=== PATIENT | male | born 1975 | race Caucasian/White ===

== ENCOUNTER 2020-12-09 20:11 | Emergency (ER) | payer MEDICARE, MEDICAID, SELFPAY ==
--- NOTE | ~2020-12-09 | CT_ITS ---
EXAMINATION: CT HEAD WITHOUT CONTRAST CLINICAL INFORMATION: Head injury. Fell downstairs. Loss of consciousness. COMPARISON: None TECHNIQUE: Contiguous axial imaging was performed from the skull base to vertex without intravenous administration of contrast. Coronal and sagittal reformatted images are performed at CT scanner This CT examination was performed using dose optimization techniques as appropriate, variously including the following: *Automated exposure control *Adjustment of mA and/or kV according to patient size (this includes techniques or standardized protocols for targeted exams where dose is matched to indication/reason for exam; i.e. extremities or head) *Use of iterative reconstruction technique DLP: 743 mGy-cm FINDINGS: There is no evidence of acute intracranial hemorrhage or territorial infarction. No abnormal mass effect or midline shift is seen. Barrow to white matter differentiation is well preserved. No extra-axial fluid collections are identified. The ventricles are normal in size. There is no abnormal attenuation within the brain parenchyma. The osseous structures and soft tissues are normal. The mastoid air cells and visualized portions of the paranasal sinuses are well aerated. CT/CT head/brain wo con IMPRESSION: No acute intracranial pathology.
[2020-12-09 20:23] VITALS: BP 134/86; PULSE 89; RESP 18; TEMP 37.2; O2SAT 95; BMI 34.8
[2020-12-09 21:10] LABS: Amphetamine Screen Urine Not Detected (Not Detect); Barbiturates, Urine Not Detected (Not Detect); Benzodiazepines Screen Urine Not Detected (Not Detect); Cannabinoid Screen Urine Not Detected (Not Detect); Cocaine Screen Urine POSITIVE (Not Detect); Fentanyl, urine Not Detected (Not Detect); Opiate Screen Urine Not Detected (Not Detect); Phencyclidine Screen Urine Not Detected (Not Detect)
[2020-12-09 21:16] LABS: COVID-19 Test Negative (Negative); IDNOW Serial# 08D9AD1C
[2020-12-09 21:29] LABS: MANUAL DIFF FLAG NO
[2020-12-09 21:31] LABS: Basophils Percent Auto 0.5 % (0-2); Eosinophils Absolute Auto 0.2 X10*3/uL (0.0-0.4); Hematocrit 44.1 % (42-52); Hemoglobin 15.1 g/dl (14.0-18.0); Imm Gran Abs Auto 0.05 X10*3/uL (0.00-0.03); Imm Gran Pct Auto 0.7 % (0.0-0.4); Lymphocytes Absolute Auto 2.1 X10*3/uL (1.2-4.9); Lymphocytes Percent Auto 28.8 % (20-40); Mean Corpuscular HGB Conc 34.2 g/dl (31.0-36.0); Mean Corpuscular Hemoglobin 30.2 pg (27.0-33.0); Mean Corpuscular Volume 88.2 fL (80-98); Mean Platelet Volume 11.5 fL (9.4-12.4); Monocytes Absolute Auto 0.6 X10*3/uL (0.1-1.2); Monocytes Percent Auto 7.5 % (2-11); Neutrophils Absolute Auto 4.4 X10*3/uL (2.0-8.3); Neutrophils Percent Auto 59.5 % (45-73); Platelet Count 191 X10*3/uL (160-400); Red Cell Distribution Width 13.3 % (11.0-16.0); White Blood Count 7.4 X10*3/uL (4.8-10.8)
[2020-12-09 21:59] LABS: Anion Gap 17 (12-20); Blood Urea Nitrogen 8 mg/dL (9-16); Calcium 8.7 mg/dL (8.4-10.2); Carbon Dioxide 21 mmol/L (22-29); Chloride 109 mmol/L (96-108); Creatinine Clr Calc Pharmacy 167.6; Estimated Glomerular Filt Rate > 60; Glucose Random 81 mg/dL (60-115); Potassium 3.5 mmol/L (3.3-5.1); Sodium 143 mmol/L (135-145)
[2020-12-09 22:03] LABS: Ethanol 111 mg/dL
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
--- NOTE | 2020-12-09 22:56 | PC.NURSE ---
[facility] referral completed/confirmed by mata Vanegas at this time.
[2020-12-09 23:58] VITALS: BP 128/80; PULSE 85; RESP 17; TEMP 37.1; O2SAT 98
--- NOTE | 2020-12-10 00:26 | MHC.CARE ---
Pt was provided with resources and discussed relationship with his partner. Pt reports he has a psychiatrist at [facility]- Polly Jalloh. P will be d/c.
== END 2020-12-10 01:20 | disposition home or self-care (01) ==
PROVIDERS: Emergency Provider Emergency Medicine Emergency Medical Services
DX: S09.90XA Unspecified injury of head, initial encounter (principal); F60.0 Paranoid personality disorder; F14.10 Cocaine abuse, uncomplicated; W10.9XXA Fall (on) (from) unspecified stairs and steps, initial encounter; Y93.9 Activity, unspecified; Y92.9 Unspecified place or not applicable; Y99.9 Unspecified external cause status; Z79.899 Other long term (current) drug therapy; Z20.822 Contact with and (suspected) exposure to COVID-19; Z79.82 Long term (current) use of aspirin
CPT/HCPCS: 36415; 70450; 80048; 80307; 82077; 85025; 87635; 99283; 99284

== ENCOUNTER 2022-03-22 12:15 | Outpatient (REF) | payer OTHER, MEDICAID, SELFPAY ==
[2022-03-22 13:05] LABS: COVID-19 Test Negative (Negative); IDNOW Serial# 16C4AD1C
== END 2022-03-22 12:16 | disposition home or self-care (01) ==
LOC: HO.LAB 12:15
PROVIDERS: Visit Provider Internal Medicine
DX: Z20.822 Contact with and (suspected) exposure to COVID-19 (principal)
CPT/HCPCS: 87635; C9803

== ENCOUNTER 2024-06-08 00:58 | Emergency (ER) | payer MEDICAID, SELFPAY ==
--- NOTE | 2024-06-08 | ECG_ITS ---
Test Reason : CHEST PAIN Blood Pressure : */* mmHG Vent. Rate : 86 BPM Atrial Rate : 86 BPM P-R Int : 150 ms QRS Dur : 90 ms QT Int : 380 ms P-R-T Axes : 35 -20 37 degrees QTcB Int : 454 ms Normal sinus rhythm with sinus arrhythmia Possible Anterior infarct , age undetermined Abnormal ECG No previous ECGs available Referred By: Generic ED Physician Electronically Signed By: Juanjose Lowry
[2024-06-08 01:04] VITALS: BP 146/100; BP 148/88; PULSE 80; PULSE 86; RESP 18; TEMP 36.6; O2SAT 93; O2SAT 98; BMI 28.7
--- OUTSIDE RECORDS SUMMARY | 2024-06-08 01:40 | XMS_ITS ---
Author Organization [facility] Address [address] [id number] Care Team Providers Care Construction Engineer Name Role Phone GUCCI GRADY Unavailable [phone] REASON FOR VISIT Retesting Social History Sex Assigned At : Social History Observation Description Sex Assigned At Male Encounters Encounter Location Date Provider Diagnosis [facility] [address] [place] [id number] 06/2024 GUCCI GRADY Plan Of Treatment No Information Progress Notes * Cassius ALVARADO HDOB:03/1976 (48 yo M)Acc No.[id number]:04/11/2024 Progress Notes Patient:?Cassius ALVARADO Provider:CARMEN GRADY :1975???Age:48 Y???Sex:Male Tavon e:04/11/2024 Address:[address] [id number] Subjective: * Chief Complaints: * ???1. Retesting. * Medical History:? Objective: * Vitals:? Assessment: Plan: * Treatment: * Billing Information: * Visit Code:? * Procedure Codes:? * Electronic signature of WOO GRADY CNM on 06/08/2024 at 01:40 AM EST Sign off status: Pending * Provider:CARMEN GRADY Date:?04/11/2024 Generated for Leanne strickland/Nitesh/eTransmitting on:?06/08/2024 01:40 AM EST
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
[2024-06-08] MEDS: LORazepam 1 MG TABLET PO (02:19)
[2024-06-08 02:29] LABS: MANUAL DIFF FLAG NO
[2024-06-08 02:30] LABS: Basophils Percent Auto 0.4 % (0-2); Eosinophils Absolute Auto 0.2 X10*3/uL (0.0-0.4); Eosinophils Percent Auto 2.8 % (0-4); Hemoglobin 16.4 g/dl (14.0-18.0); Imm Gran Abs Auto 0.02 X10*3/uL (0.00-0.03); Imm Gran Pct Auto 0.3 % (0.0-0.4); Lymphocytes Absolute Auto 2.7 X10*3/uL (1.2-4.9); Lymphocytes Percent Auto 38.8 % (20-40); Mean Corpuscular HGB Conc 34.2 g/dl (31.0-36.0); Mean Corpuscular Hemoglobin 29.8 pg (27.0-33.0); Mean Corpuscular Volume 87.3 fL (80.0-98.0); Monocytes Absolute Auto 0.5 X10*3/uL (0.1-1.2); Monocytes Percent Auto 7.9 % (2-11); Neutrophils Absolute Auto 3.4 x10*3/uL (2.0-8.3); Neutrophils Percent Auto 49.8 % (45-73); Platelet Count 213 X10*3/uL (160-400); Red Cell Distribution Width 12.3 % (11.0-16.0); White Blood Count 6.9 X10*3/uL (4.8-10.8)
[2024-06-08 02:52] LABS: Alanine Aminotransferase 8 U/L (0-40); Albumin Level 4.2 g/dL (3.5-5.0); Alkaline Phosphatase 77 U/L (39-117); Anion Gap 15 (12-20); Aspartate Amino Transferase 17 U/L (5-37); Bilirubin Total 0.6 mg/dL (0.0-1.0); Blood Urea Nitrogen 5 mg/dL (9-16); Calcium 8.9 mg/dL (8.4-10.2); Carbon Dioxide 21 mmol/L (22-29); Chloride 109 mmol/L (96-108); Creatinine Clr Calc Pharmacy 134.9; Estimated Glomerular Filt Rate > 60; Glucose Random 73 mg/dL (60-115); Potassium 3.7 mmol/L (3.3-5.1); Sodium 141 mmol/L (135-145); Total Protein 7.4 g/dL (6.5-8.0)
[2024-06-08 02:53] LABS: Troponin-I High Sensitivity < 2.7 ng/L (<3.5-35.0)
[2024-06-08 03:04] VITALS: BP 136/80; PULSE 85; RESP 18; TEMP 36.6; O2SAT 94
[2024-06-08 03:30] VITALS: BP 136/80; PULSE 85; RESP 18; TEMP 36.6; O2SAT 94
== END 2024-06-08 05:02 | disposition home or self-care (01) ==
PROVIDERS: Emergency Provider Internal Medicine
DX: R07.89 Other chest pain (principal); F41.9 Anxiety disorder, unspecified; F43.9 Reaction to severe stress, unspecified; Z79.899 Other long term (current) drug therapy
CPT/HCPCS: 36415; 80053; 84484; 85025; 93005; 99283; 99285

== ENCOUNTER → 2024-06-08 01:18 | Outpatient (BNV) | payer MEDICAID, SELFPAY | PROVIDERS: Emergency Provider Internal Medicine; Visit Provider Internal Medicine Cardiovascular Disease | DX: I49.9 Cardiac arrhythmia, unspecified (principal); R94.31 Abnormal electrocardiogram [ECG] [EKG] | CPT/HCPCS: 93010 ==

== ENCOUNTER 2025-03-26 15:28 | Outpatient (REF) | payer MEDICARE, MEDICAID, SELFPAY ==
--- OUTSIDE RECORDS SUMMARY | 2024-03-26 08:15 | XMS_ITS ---
Author Organization [facility] Address [address] [place] [address] Care Team Providers Care Epic Manager Name Role Phone GUCCI GRADY Unavailable [phone] REASON FOR VISIT Retesting Social History Sex Assigned At : Social History Observation Description Sex Assigned At Male Encounters Encounter Location Date Provider Diagnosis [facility] [address] [place], [place] [id number] GUCCI GRADY Plan Of Treatment Next Appt Details Provider Name:GUCCI GRADY, 06/2025 11:00:00 AM, [address] [place], [place], [id number], Progress Notes * Cassius ALVARADO HDOB:03/1976 (49 yo M)Acc No.[id number]:03/26/2024 Progress Notes Patient: Cassius Carcamo Provider: Corby GRADY :1975 A ge:48 Y S ex:Male Date:03/26/2024 Address:[address] [id number] Subjective: * Chief Complaints: * R etesting * Electronic signature of WOO GRADY CNM on 03/26/2025 at 07:27 PM EST Sign off status: Pending * Provider: Corby GRADY Date: 05/27/2023 Generated for Vangiei em/Nitesh/eTransmitting on: 05/27/2024 07:27 PM EST
--- OUTSIDE RECORDS SUMMARY | 2024-04-11 10:45 | XMS_ITS ---
Author Organization [facility] Address [address] [place] [address] Care Team Providers Care Floor Renovator Name Role Phone GUCCI GRADY Unavailable [phone] REASON FOR VISIT Retesting Social History Sex Assigned At : Social History Observation Description Sex Assigned At Male Encounters Encounter Location Date Provider Diagnosis [facility] [address] [place], [place] [phone] 06/2024 GUCCI GRADY Plan Of Treatment Next Appt Details Provider Name:GUCCI GRADY, 06/2025 11:00:00 AM, [address] [place], [phone], Progress Notes * Cassius ALVARADO HDOB:03/1976 (49 yo M)Acc No.[id number]:04/11/2024 Progress Notes Patient: Cassius Carcamo Provider: Corby GRADY :1975 A ge:48 Y S ex:Male Date:04/11/2024 Address:[address] [id number] Subjective: * Chief Complaints: * R etesting * Electronic signature of WOO GRADY CNM on 03/26/2025 at 07:27 PM EST Sign off status: Pending * Provider: Corby GRADY Date: 0 04/11/2024 Generated for Vangiei em/Nitesh/eTransmitting on: 1 05/27/2024 07:27 PM EST
--- OUTSIDE RECORDS SUMMARY | 2024-07-18 05:30 | XMS_ITS ---
Author Organization [facility] Address [address] [place] [place] [address] Care Team Providers Care Ship Self Defense System Mk1 Operator Name Role Phone GUCCI GRADY Unavailable [phone] REASON FOR VISIT Retesting Social History Sex Assigned At : Social History Observation Description Sex Assigned At Male Encounters Encounter Location Date Provider Diagnosis [facility] [address] [place], [place] [phone] 02/2025 GUCCI GRADY Plan Of Treatment Next Appt Details Provider Name:GUCCI GRADY, 06/2025 11:00:00 AM, [address] [place], [id number], Progress Notes * Cassius ALVARADO HDOB:03/1976 (49 yo M)Acc No.[id number]:07/18/2024 Progress Notes Patient: Cassius Carcamo Provider: Corby GRADY :1975 A ge:48 Y S ex:Male Date:07/18/2024 Address:[address] [id number] Subjective: * Chief Complaints: * R etesting Billing Information: * Procedure Codes: * Electronic signature of WOO GRADY CNM on 03/26/2025 at 07:27 PM EST Sign off status: Pending * Provider: Corby GRADY Date: 0 07/18/2024 Generated for Printi ng/Faxing/eTransmitting on: 1 05/27/2024 07:27 PM EST
--- OUTSIDE RECORDS SUMMARY | 2024-11-12 08:30 | XMS_ITS ---
Author Organization [facility] Address [address] [place] [address] Care Team Providers Care Reaming Machine Operator Name Role Phone GUCCI GRADY [phone] Allergies Allergen (clinical drug ingredient) Drug/Non Drug Allergy documented on EMR Reaction Allergy Type Onset Date Status aspirin Aspirin Unknown Drug Allergy Active REASON FOR VISIT Counseling/Testing Medications Medication SIG (Take, Route, Frequency, Duration) Notes Start Date End Date Status Albuterol Active Ipratropium-Albuterol Active Fluticasone Propionate (Inhal) Active Famotidine Active Nicotine Active Lasix Active Ammonium Lactate Act avtar Vitamin D3 Active Topiramate Active Prazosin HCl Active Diclofenac Active Furosemide Active Biktarvy Active Divalproex Sodium Ac tive Vitamin B12 Active Social History Sex Assigned At : Social History Observation Description Sex Assigned At Male Social History HIV Risk Assessment Social Info Question Answer Notes Additional Questions Is an HIV Risk Asse ssment being conducted? No Reproductive Life Plan: Social Info Question Answer Notes Reproductive Life Plan: Do you want to have chil dren? No, I don't want to have children How sure are you that you will be able to use your control method without any problems? Very sure People's plans change. Is it possible you or your partner could ever decide to become ? No Human Trafficking: Social Info Question Answer Notes Human Trafficking Experienced: No PrEP for HIV: Social Info Question Answer Notes PrEP for HIV Is the client intere sted in beginning/continuing PrEP for HIV? No Sexual History: Social Info Question Answer Notes Sexual History: Sexual History Reviewed: Partner s, Practices, Protection/Past STIs Currently sexually active? No When you are sexually active, who are your partners? Men Do you use condoms? No Date of last unprotected intercourse: 04/09/2013 Number of partners in past 3 months: 0 Client is not sex ually active Number of partners in past year: 0 Does your partner(s) currently have any STIs? No Counseling Provided: Social Info Question Answer Notes Counseling Provided Please indicate the length of time, in minutes, that counseling was provided. 5 Counseling Was Provided By: brian Drugs/Alcohol: Social Info Question Answer Notes Drug/Alcohol Use Do you or have you used drugs? No Do you or have you used alcohol? No Food Access: Social Info Question Answer Notes Food Access The Client's current access to food is Secure Food Access Relationships: Social Info Question Answer Notes Relationships Has the client exper ienced any of the following: Client has never experienced harmful relationships Housing Social Info Question Answer Notes Housing The client's current living situation is: stable housing Tobacco Use: Social Info Question Answer Notes Tobacco Use: Do you/have you used tobacco? Yes, currently cigarette use How long have you been smoking (years)? 26 How many cigarettes do you smoke per day? 0 - 10 Tobacco Smoking Status Current every day smoker Encounters Encounter Location Date Provider Diagnosis [address] [id number] 09/2024 GUCCI GRADY Plan Of Treatment Next Appt Details Provider Name:GUCCI GRADY, 06/2025 11:00:00 AM, [address] [place] [address], [phone], History and Physical Notes * HPI (History of Present Illness) Category Sub-Category Detail Notes Category Not es Medicare Annual Visit Patient Care Team Progress Notes * Cassius ALVARADO HDOB:03/1976 (49 yo M)Acc No.[id number]:11/12/2024 Progress Notes Patient: Cassius Carcamo Provider: Corby GRADY :1975 A ge:49 Y S ex:Male Date:11/12/2024 Address:[address] [facility] [place], [id number] Subjective: * Chief Complaints: * C ounseling/Testing * Medical History: Kaposi sarcoma, treated HIV positive, undetectable viral load Syphilis 09/2022 1:64 bicillin x 1, 07/2023 late latent 1:128 doxy x 4wk Medical History Verified * Surgical History: Denies Past Surgical History. Surgical History verified. * Hospitalization/Major Diagno stic Procedure: Denies Past Hospitalization. Hospitalization Verified. * Family History: F amily History: breast cancer. F amily History Verified.. * Social History: F ood Access: F ood Access T he Client's current access to food is S [employer] Food Access H ousing: H ousing T he client's current living situation is:?stable housing R eproductive Life Plan: R eproductive Life Plan D o you want to have children? N o, I don't want to have children H ow sure are you that you will be able to use your control method without any problems? V ericka sure P eople's plans change. Is it possible you or your partner could ever decide to become ? N o S exual History: S exual History S exual History Reviewed: P artners, Practices, Protection/Past STIs C urrently sexually active? N o W hen you are sexually active, who are your partners? M en D o you use condoms? N o D ate of last unprotected intercourse: 0 04/09/2013 N umber of partners in past 3 months: 0 Client is not sexually active N umber of partners in past year: 0 D oes your partner(s) currently have any STIs??No H IV Risk Assessment: A dditional Questions I s an HIV Risk Assessment being conducted??No P rEP for HIV: P rEP for HIV I s the client interested in beginning/continuing PrEP for HIV? N o R elationships: R elationships H as the client experienced any of the following: Carolyn paulino has never experienced harmful relationships H uman Trafficking: H uman Trafficking E xperienced: N o T obacco Use: T obacco Use D o you/have you used tobacco? Y es, currently cigarette use H ow long have you been smoking (years)? 2 6 H ow many cigarettes do you smoke per day??0 - 10 T obacco Smoking Status C urrent every day smoker D rugs/Alcohol: D rug/Alcohol Use D o you or have you used drugs? N o D o you or have you used alcohol? N o C ounseling Provided: C ounseling Provided P lease indicate the length of time, in minutes, that counseling was provided. 5 C ouveronaeling Was Provided By: larissa Macario ocial History Verified. * Medications: T akingDiclofenac Lasix Prazosin HCl Topiramate Vitamin D3 Ammonium Lactate Nicotine Famotidine Fluticasone Propionate (Inhal) Ipratropium-Albuterol Albuterol Vitamin B12 Furosemide Divalproex Sodium Biktarvy Taking Diclofenac Taking Lasix Taking Prazosin HCl Taking Topiramate Taking Vitamin D3 Taking Ammonium Lactate Taking Nicotine Taking Famotidine Taking Fluticasone Propionate (Inhal) Taking Ipratropium- Albuterol Taking Albuterol Taking Vitamin B12 Taking Furosemide Taking Divalproex Sodium Taking Biktarvy DiscontinuedSEROquel Medication List reviewed and reconciled with the patientDiscontinued SEROquel Medication List reviewed and reconciled with the patient * Allergies: A spirinyesAllergies Verified. * Electronic signature of WOO GRADY CNM on 03/26/2025 at 07:27 PM EST Sign off status: Pending * Provider: Corby GRADY Date: 0 11/12/2024 Generated for Leanne strickland/Nitesh/Duran on: 1 05/27/2024 07:27 PM EST
--- NOTE | ~2025-03-26 | XR_ITS ---
EXAMINATION: XR FOOT, LEFT CLINICAL INFORMATION: left foot ulcer COMPARISON: None available. TECHNIQUE: AP, lateral, and oblique views of the left foot. FINDINGS: No fracture, dislocation, or suspicious bone lesion. No focal osteopenia, periostitis, or permeative bone changes to suggest radiographic findings of osteomyelitis. There is normal alignment. Joint spaces are preserved. There is a normal plantar arch. There is a tiny plantar calcaneal spur. There is dorsal soft tissue swelling of the forefoot, with mild edema extending into the midfoot. There is no soft tissue gas. XR/XR foot LT min 3V IMPRESSION: 1. Soft tissue swelling of the forefoot, without definitive radiographic evidence of osteomyelitis. Electronically signed by: Hardeep Enriquez MD 03/26/2025 04:32 PM EST
[2025-03-26 16:05] LABS: MANUAL DIFF FLAG NO
[2025-03-26 17:03] LABS: Hematocrit 39.8 % (42.0-52.0); Hemoglobin 13.5 g/dl (14.0-18.0); Imm Gran Abs Auto 0.02 X10*3/uL (0.00-0.03); Imm Gran Pct Auto 0.3 % (0.0-0.4); Lymphocytes Absolute Auto 0.9 X10*3/uL (1.2-4.9); Mean Corpuscular HGB Conc 33.9 g/dl (31.0-36.0); Mean Corpuscular Hemoglobin 29.9 pg (27.0-33.0); Mean Corpuscular Volume 88.2 fL (80.0-98.0); NRBC Abs Auto 0.000 X10*3/uL (0.0-0.012); NRBC Pct Auto 0.0 /100WBC (0.0-0.2); Platelet Count 210 X10*3/uL (160-400); Red Blood Count 4.51 X10*6/uL (4.60-5.80); White Blood Count 6.4 X10*3/uL (4.8-10.8)
[2025-03-26 17:28] LABS: Alanine Aminotransferase 6 U/L (0-40); Albumin Level 4.6 g/dL (3.5-5.0); Alkaline Phosphatase 55 U/L (39-117); Anion Gap 13 (12-20); Aspartate Amino Transferase < 6 U/L (5-37); Blood Urea Nitrogen 15 mg/dL (9-16); Calcium 9.1 mg/dL (8.4-10.2); Carbon Dioxide 24 mmol/L (22-29); Chloride 108 mmol/L (96-108); Estimated Glomerular Filt Rate > 60; Potassium 4.0 mmol/L (3.3-5.1); Sodium 141 mmol/L (135-145); Total Protein 6.9 g/dL (6.5-8.0)
--- OUTSIDE RECORDS SUMMARY | 2025-03-26 19:28 | XMS_ITS | Patient Health Record ---
Author Organization [facility] Address [address] [place] [address] Care Team Providers Care Antenna Engineer Name Role Phone GUCCI GRADY [facility] [phone] Allergies Allergen (clinical drug ingredient) Drug/Non Drug Allergy documented on EMR Reaction Allergy Type Onset Date Status aspirin Aspirin Unknown Drug Allergy Active Results Component Value Reference Range Flag Notes T pallidum Screening [facility] -[id number] Reviewed date:07/30/2024 11:53:04 AM Interpretation:1:32, Historic treatment Performing Lab:[facility], [address], [address], [place], Phone - [phone], [facility] Notes/Report: T pallidum Antibodies Reactive Non Reactive A RPR Reactive Non Reactive A RPR, Quant 1:32 NonRea<1:1 titer H T pallidum Screening [facility] -[id number] Reviewed date:04/29/2024 09:32:34 AM Interpretation:RPR 1:32, Historic treatment Performing Lab:[facility], [address], [address], [place], Phone - [phone], [facility] Notes/Report: T pallidum Antibodies Reactive Non Reactive A RPR Reactive Non Reactive A RPR, Quant 1:32 NonRea<1:1 titer H Reason For Referral No Information Medications Medication SIG (Take, Route, Frequency, Duration) Notes Start Date End Date Status Ammonium Lactate Act avtar Nicotine Active Famotidine Active Fluticasone Propionate (Inhal) Active Ipratropium-Albuterol Active Albuterol Active Diclofenac Active Vitamin B12 Active Lasix Active Furosemide Active Prazosin HCl Active Divalproex Sodium Ac tive Topiramate Active Biktarvy Active Vitamin D3 Active Social History Sex Assigned At : [...] client's current living situation is: stable housing Section Notes: RPR testing Declines sti testing Vital Signs Blood pressure diastolic 62 mm Hg 01/21/2025 Height 5'11 in 01/21/2025 Blood pressure systolic 102 mm Hg 01/21/2025 Weight 262 lbs 01/21/2025 BMI 36.54 kg/m2 01/21/2025 Encounters Encounter Location Date Provider Diagnosis [address] [id number] 04/25/2024 GUCCI GRADY Encounter for scre ening for infections with a predominantly sexual mode of transmission Z11.3 ; Counseling, unspecified Z71.9 and Other problems related to lifestyle Z72.89 [place] [facility] [address] [place], [place] [id number] 07/25/2024 GUCCISTEPHANIA GRADY Encounter for scre ening for infections with a predominantly sexual mode of transmission Z11.3 ; Counseling, unspecified Z71.9 and Other problems related to lifestyle Z72.89 [place] [facility] [address], [place] [id number] 01/21/2025 GUCCISTEPHANIA GRADY Encounter for scre ening for infections with a predominantly sexual mode of transmission Z11.3 Assessments Encounter Date Diagnosis (ICD Code) Assessment Notes Treatment Notes Treatment Clinical Notes Section Notes 04/25/2024 Encounter for screening for infections with a predominantly sexual mode of transmission (ICD-10 - Z11.3) Discussed STI risks, screenings that are available through [facility] and safe sex. For syphilis retesting 9 months post treatment. Clt aware of lab processing times and how to view results on portal and how positive results will be communicated Spent 15 minutes doing the following: Chart Prep Obtaining/revi espinosa history Performing medically necessary exam Counseling/Appliances Sample Maker rdination of Care Documenting the visit Educating the patient Ordering medication/crystal t/procedures Established Patient: [id number] 10 Minutes 07/25/2024 Encounter for screening for infections with a predominantly sexual mode of transmission (ICD-10 - Z11.3) Reviewed all labs and history of treatment. Clt has responded correctly to late latent treatment with a 4-fold drop in RPR. However, it is recommended to continue to monitor RPR at the following intervals after treatment: 6, 12, 18 and 24 months post treatment to monitor where RPR ends up serofasting Spent 18 minutes doing the following: Chart Prep Obtaining/revi espinosa history Performing medically necessary exam Counseling/Appliances Sample Maker rdination of Care Documenting the visit Educating the patient Ordering medication/crystal t/procedures Established Patient: [id number] 10 Minutes 01/21/2025 Encounter for screening for infections with a predominantly sexual mode of transmission (ICD-10 - Z11.3) Reviewed syphilis testing done by other provider, is consistent with clt's testing with [facility]. Has already achieved a 4-fold decrease in titer indicating appropriate treatment and response. Reviewed no need to repeat syphilis testing today since it was done last month and no exposure concerns. Testing recommendations for an individual with HIV is: 6, 12, 18 and 24 months post treatment. Testing is due 07/2025. If clt prefers to do testing with HIV specialist that is fine. Also discussed HIV specialist in the area as clt traveling to [place] for care. Spent 20 minutes doing the following: Chart Prep Obtaining/revi espinosa history Counseling/Appliances Sample Maker rdination of Care Documenting the visit Educating the patient Interpretation of test performed by others Communication of test results Established Patient: [id number] 20 Minutes 07/25/2024 Counseling, unspecified (ICD-10 - Z71.9) Spent 18 minutes doing the following: Chart Prep Obtaining/revi espinosa history Performing medically necessary exam Counseling/Appliances Sample Maker rdination of Care Documenting the visit Educating the patient Ordering medication/crystal t/procedures Established Patient: [id number] 10 Minutes 04/25/2024 Counseling, unspecified (ICD-10 - Z71.9) Spent 15 minutes doing the following: Chart Prep Obtaining/revi espinosa history Performing medically necessary exam Counseling/Appliances Sample Maker rdination of Care Documenting the visit Educating the patient Ordering medication/crystal t/procedures Established Patient: 05087 10 Minutes 04/25/2024 Other problems related to lifestyle (ICD-10 - Z72.89) Spent 15 minutes doing the following: Chart Prep Obtaining/revi espinosa history Performing medically necessary exam Counseling/Appliances Sample Maker rdination of Care Documenting the visit Educating the patient Ordering medication/crystal t/procedures Established Patient: 05204 10 Minutes 07/25/2024 Other problems related to lifestyle (ICD-10 - Z72.89) Spent 18 minutes doing the following: Chart Prep Obtaining/revi espinosa history Performing medically necessary exam Counseling/Appliances Sample Maker rdination of Care Documenting the visit Educating the patient Ordering medication/crystal t/procedures Established Patient: [id number] 10 Minutes 01/21/2025 Other Discussed STI risks, screening, and safe sex Spent 20 minutes doing the following: Chart Prep Obtaining/revi espinosa history Counseling/Appliances Sample Maker rdination of Care Documenting the visit Educating the patient Interpretation of test performed by others Communication of test results Established Patient: [id number] 20 Minutes Plan Of Treatment Next Appt Details Provider Name:GUCCI GRADY, 06/2025 11:00:00 AM, [address] [place] [address], [id number], Insurance Providers Payer Name Payer Address Payer Phone Subscriber Number Group Number Insured Name Patient Relationship to Insured Coverage Start Date Coverage End Date MEDICARE PART B [address] [place] [phone] [id number] Jairo gannonFerdinandCassius Self - patient is the insured [place] ATT CLAIMS [address] [place] [address] [phone] [id number] Jairo gannonFerdinandCassius Self - patient is the insured Medical (General) History Medical History History ICD Code Kaposi sarcoma, treated HIV positive, undetectable viral load Syphilis 09/2022 1:64 bicillin x 1, 4 late latent 1:128 doxy x 4wk Surgical History Surgery Date(Month/Year)
[2025-03-27 08:42] LABS: Syphilis Screen Reactive (Nonreactive)
[2025-03-28 00:13] LABS: HIV RNA PCR Qn Copies 59 copies/mL (NOT DETECTED); HIV RNA PCR Qn Log Copies 1.77 (NOT DETECTED)
== END 2025-03-26 15:29 | disposition home or self-care (01) ==
LOC: HO.LAB 15:28
PROVIDERS: Visit Provider Student in an Organized Health Care Education/Training Program
DX: Z13.1 Encounter for screening for diabetes mellitus (principal); Z11.4 Encounter for screening for human immunodeficiency virus [HIV]; L97.521 Non-pressure chronic ulcer of other part of left foot limited to breakdown of skin; R06.00 Dyspnea, unspecified
CPT/HCPCS: 36415; 73630; 80053; 83036; 85025; 85652; 86140; 86359; 86360; 86592; 86780; 87536

== ENCOUNTER → 2025-03-26 16:24 | Outpatient (BNV) | payer MEDICARE, MEDICAID, SELFPAY | PROVIDERS: Visit Provider Radiology Diagnostic Radiology | DX: M79.89 Other specified soft tissue disorders (principal) | CPT/HCPCS: 73630 ==